=== PATIENT | male | born 1990 | race African-American/Black ===

== ENCOUNTER 2019-11-25 13:17 | Emergency (ER) | payer SELFPAY ==
[~2019-11-25] VITALS: Ht 195.6 cm; Wt 136.3 kg
[2019-11-25] MEDS ORDERED: MORPHINE SULFATE 4 MG/ML VIAL. IV ONE (14:45)
[2019-11-25] MEDS ORDERED: IV NORMAL SALINE 1000ML BAG 1,000 ML IV ONE (14:45)
[2019-11-25] MEDS ORDERED: ONDANSETRON PF 4 MG/2 ML VIAL. IV ONE (14:45)
[2019-11-25 15:00] VITALS: BP 151/119
[2019-11-25 15:23] LABS: BASO # 0.1 x10^3/uL (0.0-0.2); BASO % 1 % (0-3); EOS % 0 % (0-3); LYMPH # 1.6 x10^3/uL (1.0-4.8); LYMPH % 15 % (24-48); MEAN CORPUSCULAR HEMOGLOBIN 30 pg (25-35); MEAN CORPUSCULAR HGB CONC 34 g/dL (31-37); MEAN CORPUSCULAR VOLUME 88 fL (79-100); MONO # 0.6 x10^3/uL (0.0-1.1); MONO % 6 % (0-9); NEUT # 8.7 x10^3/uL (1.8-7.7); NEUT % 79 % (31-73); PLATELET COUNT 306 x10^3/uL (140-400); RED BLOOD COUNT 5.32 x10^6/uL (4.30-5.70); RED CELL DISTRIBUTION WIDTH 13.8 % (11.5-14.5)
[2019-11-25] MEDS ORDERED: IOHEXOL 300 MG/ML 100ML VIAL. IV ONE (15:30)
[2019-11-25 15:34] LABS: CALCIUM 9.2 mg/dL (8.5-10.1); CREATININE 1.1 mg/dL (0.7-1.3); GFR 95.1; POTASSIUM 4.1 mmol/L (3.5-5.1)
[2019-11-25] MEDS ORDERED: CONTRAST GIVEN. MC PRN (15:45)
--- NOTE | 2019-11-25 16:40 | RAD ---
Exam: CT of orbits with contrast INDICATION: Left mastoid pain TECHNIQUE: Sequential axial images through the orbits obtained following the administration of 64 mL of Isovue-370 IV contrast. Sagittal and coronal reformatted images were reconstructed from the axial data and reviewed. Comparisons: None FINDINGS: Visualized intracranial structures are unremarkable. Globes and orbital contents are normal. Mastoid air cells are well-pneumatized. Paranasal sinuses are well-pneumatized. No acute fractures are identified. Visualized soft tissues are unremarkable. IMPRESSION: Mastoid air cells are well-pneumatized. No evidence for mastoiditis. Exposure: One or more of the following in the visualized dose reduction techniques were utilized for this examination: 1. Automated exposure control 2. Adjustment of the MA and/or KV according to patient size 3. Use of iterative of reconstructive technique Electronically signed by: Torres Patel MD (11/25/2019 4:37 PM) [id number]
[2019-11-25] MEDS ORDERED: OFLO5DRO7 LEFT EAR (16:46)
--- NOTE | 2019-11-25 16:48 | PHYS DOC ---
Past Medical History Past Medical History: No Pertinent History Past Surgical History: No Surgical History Smoking Status: Current Every Day Smoker Alcohol Use: Occasionally Drug Use: None General Adult EDM: Chief Complaint: EARACHE/EAR PAIN HPI: HPI: Patient is a 28 year old AA male who presents to the emergency department with complaints of severe left ear pain and no appetite for the last 2 days. Patient states that when he opens his mouth he experiences pain in his left ear. He states that he also has pain when the area immediately behind his ear is palpated. He denies any bleeding or discharge from his ear. Patient denies any fever, cough, shortness of breath, chest pain, palpitations, nausea, vomiting, diarrhea, abdominal pain, rash, body aches, or fatigue. He denies any decreased hearing, sinus pressure, nasal congestion, vision changes, dizziness, or headache. He currently rates the pain in his left ear 8 out of 10 on the pain scale, the pain increases to a 10 out of 10 if the ear is touched or he opens his mouth wide. He denies any injury or trauma to the affected ear. He denies any dental pain or sore throat. Review of Systems: Review of Systems: Constitutional: Denies fever or chills. [] Eyes: Denies change in visual acuity. [] HENT: Denies nasal congestion or sore throat; see HPI. [] Respiratory: Denies cough or shortness of breath. [] Cardiovascular: Denies chest pain or edema. [] GI: Denies abdominal pain, nausea, vomiting, bloody stools or diarrhea. [] : Denies dysuria. [] Musculoskeletal: Denies back pain or joint pain. [] Integument: Denies rash. [] Neurologic: Denies headache, focal weakness or sensory changes. [] Endocrine: Denies polyuria or polydipsia. [] Lymphatic: Denies swollen glands. [] Psychiatric: Denies depression or anxiety. [] Heart Score: Risk Factors: Risk Factors: DM, Current or recent (<one month) smoker, HTN, HLP, family history of CAD, obesity. Risk Scores: Score 0 - 3: 2.5% MACE over next 6 weeks - Discharge Home Score 4 - 6: 20.3% MACE over next 6 weeks - Admit for Clinical Observation Score 7 - 10: 72.7% MACE over next 6 weeks - Early Invasive Strategies Current Medications: Current Medications Medications (Trade) Dose Ordered Sig/Rajat Start Time Stop Time Status Last Admin Dose Admin Info (CONTRAST GIVEN -- Rx MONITORING) 1 each PRN DAILY PRN 11/25/19 15:45 11/27/19 15:44 Iohexol (Omnipaque 300 Mg/ml) 70 ml 1X ONCE 11/25/19 15:30 11/25/19 15:32 DC 11/25/19 16:00 70 ML Morphine Sulfate (Morphine Sulfate) 4 mg 1X ONCE 11/25/19 14:45 11/25/19 14:46 DC 11/25/19 15:28 4 MG Ondansetron HCl (Zofran) 4 mg 1X ONCE 11/25/19 14:45 11/25/19 14:46 DC 11/25/19 15:27 4 MG Sodium Chloride 1,000 ml @ 1,000 mls/hr 1X ONCE 11/25/19 14:45 11/25/19 15:44 DC 11/25/19 15:27 1,000 MLS/HR Allergies: Allergies: Allergies Coded Allergies Type Severity Reaction Last Updated Verified No Known Drug Allergies 02/20/14 No Physical Exam: PE: Constitutional: Well developed, well nourished, no acute distress, non-toxic appearance morbidly obese. [] HENT: Normocephalic, atraumatic, bilateral TMs normal, moist mucous membranes, no oral exudates, nose normal; tenderness to palpation of the left mastoid without redness, or warmth. Redness noted at 6:00 in the left ear canal no visible abscess, no purulent drainage or bleeding[] Eyes: PERRLA, EOMI, conjunctiva normal, no discharge. [] Neck: Normal range of motion, supple, no stridor. [] Cardiovascular:Heart rate regular rhythm Lungs & Thorax: Respirations even and unlabored, no retractions, no respiratory distress Skin: Warm, dry, no erythema, no rash. [] Extremities: No cyanosis, ROM intact, no edema. [] Neurologic: Alert and oriented X 3, no focal deficits noted. [] Psychologic: Affect normal, judgement normal, mood normal. [] Current Patient Data: Labs: Laboratory Tests Test 11/25/19 13:50 White Blood Count 11.0 x10^3/uL (4.0-11.0) Red Blood Count 5.32 x10^6/uL (4.30-5.70) Hemoglobin 16.0 g/dL (13.0-17.5) Hematocrit 47.0 % (39.0-53.0) Mean Corpuscular Volume 88 fL (79-100) Mean Corpuscular Hemoglobin 30 pg (25-35) Mean Corpuscular Hemoglobin Concent 34 g/dL (31-37) Red Cell Distribution Width 13.8 % (11.5-14.5) Platelet Count 306 x10^3/uL (140-400) Neutrophils (%) (Auto) 79 % (31-73) H Lymphocytes (%) (Auto) 15 % (24-48) L Monocytes (%) (Auto) 6 % (0-9) Eosinophils (%) (Auto) 0 % (0-3) Basophils (%) (Auto) 1 % (0-3) Neutrophils # (Auto) 8.7 x10^3/uL (1.8-7.7) H Lymphocytes # (Auto) 1.6 x10^3/uL (1.0-4.8) Monocytes # (Auto) 0.6 x10^3/uL (0.0-1.1) Eosinophils # (Auto) 0.0 x10^3/uL (0.0-0.7) Basophils # (Auto) 0.1 x10^3/uL (0.0-0.2) Sodium Level 138 mmol/L (136-145) Potassium Level 4.1 mmol/L (3.5-5.1) Chloride Level 101 mmol/L (98-107) Carbon Dioxide Level 27 mmol/L (21-32) Anion Gap 10 (6-14) Blood Urea Nitrogen 9 mg/dL (8-26) Creatinine 1.1 mg/dL (0.7-1.3) Estimated GFR (Cockcroft-Gault) 95.1 Glucose Level 109 mg/dL (70-99) H Calcium Level 9.2 mg/dL (8.5-10.1) Laboratory Tests 11/25/19 13:50 Laboratory Tests 11/25/19 13:50 Vital Signs: Vital Signs Date Time Temp Pulse Resp B/P (MAP) Pulse Ox O2 Delivery O2 Flow Rate FiO2 6/13/20 15:28 18 96 Room Air 11/25/19 14:12 98.6 111 169/112 (131) 98.6 EKG: EKG: [] Radiology/Procedures: Radiology/Procedures: PROCEDURE: CT ORBITS/IAC/SELLA WO CONTRAS Exam: CT of orbits with contrast INDICATION: Left mastoid pain TECHNIQUE: Sequential axial images through the orbits obtained following the administration of 64 mL of Isovue-370 IV contrast. Sagittal and coronal reformatted images were reconstructed from the axial data and reviewed. Comparisons: None FINDINGS: Visualized intracranial structures are unremarkable. Globes and orbital contents are normal. Mastoid air cells are well-pneumatized. Paranasal sinuses are well-pneumatized. No acute fractures are identified. Visualized soft tissues are unremarkable. IMPRESSION: Mastoid air cells are well-pneumatized. No evidence for mastoiditis.[] Course & Med Decision Making: Course & Med Decision Making Pertinent Labs and Imaging studies reviewed. (See chart for details) Patient is a 28-year-old male who presented to the emergency room with complains of severe pain in his left ear for the last 2 days. Physical exam is concerning for possible mastoiditis. Work-up included a CBC which was unremarkable, BMP with a glucose of 109 otherwise unremarkable, and a CT of the orbit's sella inner with contrast. CT revealed no evidence of mastoiditis, no acute fractures, and normal sinuses. Prescription written for Augmentin and ofloxacin eardrops. I recommended that the patient fill the prescriptions and take them as directed. Follow-up with his primary care doctor this week for reevaluation, alternate Tylenol and ibuprofen as needed for pain. Return to the ER if symptoms worsen. Patient verbalized an understanding of home care, medications, follow-up, and return to ED instructions and was in agreement with the plan of care. [] Dragon Disclaimer: Dragon Disclaimer: This electronic medical record was generated, in whole or in part, using a voice recognition dictation system. Departure Departure Impression: Primary Impression: Unspecified otitis externa, left ear Additional Impression: Otalgia of left ear Disposition: HOME, SELF-CARE Condition: STABLE Referrals: NO PCP (PCP) Patient Instructions: Otalgia-Brief, Otitis Externa, [id number] Additional Instructions: Fill the prescription and take it as directed. Recommend Tylenol or ibuprofen as needed for pain. Follow-up with your primary care doctor for recheck next week. Return to the ER symptoms worsen. Scripts Amoxicillin/Potassium Clav (AUGMENTIN 875-125 TABLET) 1 Each Tablet 1 TAB PO BID for 7 Days, #14 TAB 0 Refills Prov: GLENYS HODGSON APRN 11/25/19 Ofloxacin (OFLOXACIN) 5 Ml Drops 5 DROP LEFT EAR BID, #5 ML 0 Refills Prov: GLENYS HODGSON APRN 11/25/19 Justicifation of Admission Dx: Justifications for Admission: Justification of Admission Dx: N/A GLENYS HODGSON APRN Nov 25, 2019 16:47
[2019-11-25] MEDS ORDERED: AMOX1TAB61 PO (16:55)
== END 2019-11-25 17:04 | disposition home or self-care (01) ==
LOC: ER 13:17
DX: H60.92 Unspecified otitis externa, left ear (principal); H92.02 Otalgia, left ear; F17.200 Nicotine dependence, unspecified, uncomplicated; Z79.899 Other long term (current) drug therapy
CPT/HCPCS: 36415; 70480; 80048; 85025; 96374; 96375; 99284; J2270; J2405; J7030; Q9967